=== PATIENT | female | born 1965 | race Caucasian/White ===

== ENCOUNTER → 2016-09-09 | Outpatient (CLI) | payer OTHER ==
[2016-09-09 14:18] LABS: HEMOGLOBIN 14.1 gm/dl (12.3-15.3); RED BLOOD COUNT 4.7 M/UL (4.00-5.10); WHITE BLOOD COUNT 9.9 K/UL (4.5-11.0)
[2016-09-09 14:42] LABS: BUN/CREATININE RATIO 18 (0-10)
== END ==
LOC: LAB 13:03
PROVIDERS: Nurse Practitioner Family
DX: R30.0 Dysuria (principal)
CPT/HCPCS: 36415; 80053; 83036; 83880; 85025; 87077; 87086; 87186

== ENCOUNTER 2016-09-10 23:54 | Emergency (ER) | payer OTHER ==
[2016-09-11 00:57] LABS: HEMOGLOBIN 13.6 gm/dl (12.3-15.3); RED BLOOD COUNT 4.59 M/UL (4.00-5.10); WHITE BLOOD COUNT 10.7 K/UL (4.5-11.0)
[2016-09-11 01:19] LABS: BUN/CREATININE RATIO 20 (0-10)
== END 2016-09-11 03:55 | disposition home or self-care (01) ==
LOC: ER1 23:54
PROVIDERS: Emergency Medicine
DX: N12 Tubulo-interstitial nephritis, not specified as acute or chronic (principal); E11.9 Type 2 diabetes mellitus without complications; Z88.0 Allergy status to penicillin; Z79.84 Long term (current) use of oral hypoglycemic drugs; Z79.4 Long term (current) use of insulin
CPT/HCPCS: 36415; 71010; 80053; 81001; 82550; 82553; 82962; 83605; 83874; 84484; 85025; 85610; 85730; 87086; 93005; 96374; 96375; 99284; J0696; J7050

== ENCOUNTER 2020-04-13 16:41 | Emergency (ER) | payer OTHER, MEDICARE ==
[2020-04-13 17:10] LABS: HEMOGLOBIN 12.2 gm/dl (12.3-15.3); RED BLOOD COUNT 4.4 M/UL (4.00-5.10); WHITE BLOOD COUNT 11.4 K/UL (4.5-11.0)
[2020-04-13 17:26] LABS: BUN/CREATININE RATIO 22 (0-10)
[2020-04-13] MEDS ORDERED: CYCLOBENZAPRINE10 MG PO (18:31)
== END 2020-04-13 18:47 | disposition home or self-care (01) ==
LOC: ER1 16:41
PROVIDERS: Emergency Medicine
DX: S16.1XXA Strain of muscle, fascia and tendon at neck level, initial encounter (principal); S39.012A Strain of muscle, fascia and tendon of lower back, initial encounter; S70.12XA Contusion of left thigh, initial encounter; S90.411A Abrasion, right great toe, initial encounter; R51.9 Headache, unspecified; E11.40 Type 2 diabetes mellitus with diabetic neuropathy, unspecified; M51.37 Other intervertebral disc degeneration, lumbosacral region; F17.200 Nicotine dependence, unspecified, uncomplicated; Z79.4 Long term (current) use of insulin; V44.5XXA Car driver injured in collision with heavy transport vehicle or bus in traffic accident, initial encounter; Y92.410 Unspecified street and highway as the place of occurrence of the external cause
CPT/HCPCS: 70450; 71045; 72125; 72128; 72131; 73552; 73630; 80053; 83605; 85025; 85610; 85730; 86850; 86900; 86901; 99284; G0480